=== PATIENT | female | born 1980 | race American Indian/Alaskan Native ===

== ENCOUNTER 2016-12-03 11:18 | Emergency (ER) | payer OTHER ==
--- NOTE | 2016-12-03 11:50 | Emergency Department Report ---
Entered by KANDIS RIVERO, acting as scribe for AGUSTÍN DONNELLY NP. Chief Complaint: Anxiety Stated Complaint: PULLING SENSATION IN CHEST/DIZZINESS Time Seen by Provider: 12/03/16 11:33 - HPI History of Present Illness: 36 y/o female presents c/o anxiety that occurs when she is around cell phone towers. Pt states "a magnet is pulling on her heart." She left her home in [place], [place] but got stuck in [place] on a layover flight trying to leave the country. Pt denies pain PT was living in [place] with grandparents but the both passed. PT thinks her house has too much electricity around them. PT also states that she is allergic to air. PT states she has books where she has written all of her symptoms down in. - ROS Review of Systems: -pain + hair loss + legs feeling like their is a motor in them + undescribable odd sensation in her chest - Exam Vital Signs: Vital Signs 12/03/16 11:32 Temperature 98.3 F Pulse Rate 69 Respiratory 16 Rate Blood Pressure 147/98 O2 Sat by Pulse 99 Oximetry Physical Exam: PT looks well, non toxic. rapid speech tangential thought pattern MSE screening note: Focused history and physical exam performed. Due to findings the following was ordered: labs ekg ED Disposition for MSE Condition: Stable This documentation as recorded by the scribe,KANDIS RIVERO,accurately reflects the service I personally performed and the decisions made by me,AGUSTÍN DONNELLY , PROFESSOR OF MANAGEMENT.
[2016-12-03 12:31] LABS: Basophils % (Auto) 0.4 % (0.0-1.8); Eosinophils % (Auto) 1.2 % (0.0-4.3); Hemoglobin 12.3 gm/dl (10.1-14.3); Mean Corpuscular HGB Conc 33 % (30-34); Mean Corpuscular Hemoglobin 32 pg (28-32); Mean Corpuscular Volume 96 fl (79-97); Platelet Count 318 K/mm3 (140-440); Red Blood Count 3.84 M/mm3 (3.65-5.03); Red Cell Distribution Width 14.9 % (13.2-15.2); White Blood Count 3.5 K/mm3 (4.5-11.0)
[2016-12-03 12:40] LABS: Alanine Aminotransferase 11 units/L (7-56); Albumin 4.2 g/dL (3.9-5); Albumin/Globulin Ratio 1.3 %; Alkaline Phosphatase 45 units/L (35-129); Anion Gap 18 mmol/L; BUN/Creatinine Ratio 12.85; Bilirubin,Total 0.5 mg/dL (0.1-1.2); Blood Urea Nitrogen 9 mg/dL (7-17); Calcium 8.9 mg/dL (8.4-10.2); Carbon Dioxide 24 mmol/L (22-30); Chloride 100.1 mmol/L (98-107); Glucose 87 mg/dL (65-100); Potassium 3.8 mmol/L (3.6-5.0); Sodium 138 mmol/L (137-145); Total Protein 7.4 g/dL (6.3-8.2)
--- NOTE | 2016-12-03 19:01 | Emergency Department Report ---
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 States is mainly gone on for over a year. It's that she lives in [place] and is currently on a journey to the [facility] but is unsure why. He has seen multiple doctors including neurologists and psychiatrist which have done extensive workups without any clear etiology and has tried some psychiatric medications including Paxil and Wellbutrin but states she that all psych medications and to make her feel worse. She denies having any known history of bipolar affective disorder or schizophrenia. Denies any fevers, chills, nausea, vomiting, diarrhea, dysuria. Denies any suicidal ideation or homicidal ideation states that she does not taken any overdose of any medications. Does admit to hearing voices. States she notices a gas leak when she was at home in [place] and stated that there was no gas leak, states that she also felt a gas leak in her car and feels like she has been exposed to a lot of gases and radiation. - Related Data Allergies Allergy/AdvReac Type Severity Reaction Status Date / Time No Known Allergies Allergy Unverified 12/03/16 11:46 ED Review of Systems ROS: Stated complaint: PULLING SENSATION IN CHEST/DIZZINESS Other details as noted in HPI Comment: All other systems reviewed and negative Constitutional: denies: chills, fever ENT: denies: throat pain Respiratory: denies: cough Cardiovascular: denies: chest pain Gastrointestinal: denies: abdominal pain Genitourinary: denies: urgency, dysuria Musculoskeletal: denies: back pain Skin: denies: rash Neurological: denies: headache Psychiatric: anxiety, auditory hallucinations ED Past Medical Hx - Past Medical History Hx Headaches / Migraines: Yes Hx Psychiatric Treatment: Yes (ANXIETY / PANIC ATTACKS / "MULTIPLE PERSONALITIES ") - Surgical History Past Surgical History?: No - Social History Smoking Status: Current Every Day Smoker Substance Use Type: Prescribed ED Physical Exam - General Limitations: No Limitations General appearance: alert - Head Head exam: Present: atraumatic - Eye Eye exam: Present: normal appearance - Neck Neck exam: Present: normal inspection - Respiratory Respiratory exam: Present: normal lung sounds bilaterally. Absent: respiratory distress - Cardiovascular Cardiovascular Exam: Present: regular rate, normal rhythm - GI/Abdominal GI/Abdominal exam: Present: soft. Absent: distended, tenderness - Neurological Exam Neurological exam: Present: alert, oriented X3 - Psychiatric Psychiatric exam: Present: other (appears depressed, anxious, tearful on exam, auditory hallucinations) ED Course Vital Signs 12/03/16 12/03/16 11:32 19:03 Temperature 98.3 F Pulse Rate 69 77 Respiratory 16 16 Rate Blood Pressure 147/98 Blood Pressure 120/87 [Left] O2 Sat by Pulse 99 99 Oximetry ED Medical Decision Making - Lab Data Result diagrams: 12/03/16 11:56 12/03/16 11:50 - Medical Decision Making And appears to be psychotic. She has a disorganized behavior and disorganized thought and is suffering from delusions and hallucinations. Patient does not appear to be able to take care of her self and is at a risk for hurting herself accidentally. Labs urine unremarkable Placed on 1013 Critical care attestation.: If time is entered above; I have spent that time in minutes in the direct care of this critically ill patient, excluding procedure time. ED Disposition Clinical Impression: Psychosis Qualifiers: Psychosis type: unspecified psychosis type Qualified Code(s): F29 - Unspecified psychosis not due to a substance or known physiological condition Disposition: DC/TX PSY HOSP/PSY UNIT Is pt being admited?: No Does the pt Need Aspirin: No Condition: Serious Referrals: PRIMARY CARE, [Primary Care Provider] - 3-5 Days
[2016-12-03] MEDS: XANAX PO ONE (19:05)
[2016-12-04] MEDS: HALDOL PO ONE (04:43)
[2016-12-04 08:07] VITALS: BP 137/93
[2016-12-04 10:55] LABS: Urine Drugs of Abuse Note Disclamer
[2016-12-04 11:22] LABS: Bacteria,Urine 1+ /HPF (Negative); Bilirubin,Urine NEG (Negative); Blood,Urine NEG (Negative); Ketones,Urine NEG (Negative); Leukocyte Esterase,Urine NEG (Negative); Mucus,Urine FEW /HPF; Nitrite,Urine NEG (Negative); Protein,Urine <15 mg/dL mg/dL (Negative); Urobilinogen,Urine < 2.0 mg/dL (<2.0)
[2016-12-04 11:25] LABS: WBC,Urine < 1.0 /HPF (0.0-6.0)
== END 2016-12-04 12:19 ==
LOC: EEVIPCON 11:18 → ED 11:18
DX: F29 Unspecified psychosis not due to a substance or known physiological condition (principal); G43.909 Migraine, unspecified, not intractable, without status migrainosus; F17.200 Nicotine dependence, unspecified, uncomplicated
CPT/HCPCS: 36415; 80053; 80307; 81001; 84443; 84484; 84703; 85025; 93005; 93010; 99285; G0480; 80320